=== PATIENT | female | born 1945 | race Two or more races ===

== ENCOUNTER 2020-11-03 12:06 | Emergency (ER) | payer MEDICARE, MEDICAID ==
[~2020-11-03] VITALS: Ht 154.9 cm; Wt 96.2 kg
[2020-11-03 13:21] LABS: Basophils # (auto) 0.1 10 ^3/uL (0-0.2); Basophils % (auto) 0.5 % (0.0-2.0); Eosinophils # (auto) 0.3 10 ^3/uL (0-0.8); Eosinophils % (auto) 2.6 % (0.0-7.0); Hematocrit 38.5 % (36.0-46.0); Hemoglobin 13.2 g/dL (12.2-16.2); Lymphocytes % (auto) 10.3 % (10.0-50.0); Mean Corpuscular Hemoglobin 29.5 pg (28.0-32.0); Mean Corpuscular Hgb Conc. 34.3 g/dL (32.0-36.0); Mean Corpuscular Volume 86.2 fL (80.0-100.0); Monocytes # (auto) 0.7 10 ^3/uL (0-1.3); Monocytes % (auto) 7.3 % (0.0-12.0); Neutrophils # (auto) 7.7 10 ^3/uL (1.6-8.6); Neutrophils % (auto) 79.3 % (37.0-80.0); Platelet Count (auto) 324 10^3/uL (140-450); Red Blood Cells 4.47 10^6/uL (4.0-5.20); Red Cell Distribution Width 14.5 % (11.8-14.3); White Blood Cell 9.7 10^3/uL (4.4-10.8)
[2020-11-03 13:38] LABS: Alanine Aminotransferase 13 U/L (13-56); Albumin 3.2 g/dL (3.4-5.0); Anion Gap 12 (5-15); BUN/Creatinine Ratio 22.9; Blood Urea Nitrogen 30 mg/dL (7-18); Calcium 8.5 mg/dL (8.5-10.1); Carbon Dioxide 21 mmol/L (21-32); Chloride 102 mmol/L (98-107); GFR African American 51 mL/min; GFR Non-African American 42 mL/min; Glucose 123 mg/dL (74-106); Potassium 4.6 mmol/L (3.5-5.1); Sodium 135 mmol/L (136-145)
[2020-11-03 13:42] LABS: Alkaline Phosphatase 46 U/L (45-117); Aspartate Aminotransferase 11 U/L (15-37); Bilirubin, Total 0.6 mg/dL (0.2-1.0); Total Protein 6.8 g/dL (6.4-8.2)
[2020-11-03 20:38] LABS: Urine Bacteria NONE SEEN /hpf (None Seen); Urine Blood 3+ /uL (Negative); Urine Hyaline Cast MOD /lpf (0 - 2); Urine Mucus FEW (None Seen); Urine Specific Gravity 1.015 (1.001-1.035); Urine WBC 61 /hpf (0 - 5)
[2020-11-03 21:00] VITALS: BP 117/51
[2020-11-03] MEDS ORDERED: cefTRIAXone 1GM/50ML D5W 50 ML IV ONE (21:00)
[2020-11-03] MEDS ORDERED: traMADol HCL 50 MG TAB PO ONE (21:15)
== END 2020-11-03 22:10 | disposition home or self-care (01) ==
LOC: ER 12:06
DX: N20.0 Calculus of kidney (principal); N30.00 Acute cystitis without hematuria; E11.9 Type 2 diabetes mellitus without complications; I10 Essential (primary) hypertension; Z91.040 Latex allergy status; Z88.8 Allergy status to other drugs, medicaments and biological substances
CPT/HCPCS: 36415; 72128; 72131; 80053; 81001; 83735; 83880; 84484; 85025; 93005; 96374; 99285; J0696

== ENCOUNTER 2020-11-11 14:24 | Inpatient (IN) | payer MEDICARE, MEDICAID ==
[~2020-11-11] VITALS: Ht 154.9 cm; Wt 100.5 kg
[2020-11-11 14:58] LABS: Basophils # (auto) 0.1 10 ^3/uL (0-0.2); Basophils % (auto) 0.5 % (0.0-2.0); Eosinophils # (auto) 0.2 10 ^3/uL (0-0.8); Eosinophils % (auto) 1.9 % (0.0-7.0); Hematocrit 37.5 % (36.0-46.0); Hemoglobin 12.7 g/dL (12.2-16.2); Lymphocytes # (auto) 1.1 10 ^3/uL (0.4-5.4); Lymphocytes % (auto) 11.2 % (10.0-50.0); Mean Corpuscular Hemoglobin 29.4 pg (28.0-32.0); Mean Corpuscular Volume 86.6 fL (80.0-100.0); Monocytes # (auto) 0.7 10 ^3/uL (0-1.3); Monocytes % (auto) 6.9 % (0.0-12.0); Neutrophils # (auto) 7.5 10 ^3/uL (1.6-8.6); Neutrophils % (auto) 79.5 % (37.0-80.0); Platelet Count (auto) 261 10^3/uL (140-450); Red Blood Cells 4.32 10^6/uL (4.0-5.20); Red Cell Distribution Width 14.5 % (11.8-14.3); White Blood Cell 9.4 10^3/uL (4.4-10.8)
[2020-11-11 15:08] LABS: Albumin 3.4 g/dL (3.4-5.0); Anion Gap 13 (5-15); Blood Urea Nitrogen 27 mg/dL (7-18); Carbon Dioxide 25 mmol/L (21-32); Chloride 100 mmol/L (98-107); Glucose 122 mg/dL (74-106); Potassium 3.6 mmol/L (3.5-5.1); Sodium 138 mmol/L (136-145)
[2020-11-11 15:13] LABS: Alanine Aminotransferase 13 U/L (13-56); Alkaline Phosphatase 41 U/L (45-117); Aspartate Aminotransferase 13 U/L (15-37); Bilirubin, Total 0.7 mg/dL (0.2-1.0); GFR African American 49 mL/min; GFR Non-African American 41 mL/min; Total Protein 7.1 g/dL (6.4-8.2)
[2020-11-11] MEDS ORDERED: SODIUM CHLORIDE 0.9% 1,000 ML IV ONE (17:45)
[2020-11-11] MEDS ORDERED: ONDANSETRON HCL 4 MG/2 ML VIAL IV ONE (17:45)
[2020-11-11] MEDS ORDERED: MORPHINE SULF INJ 2 MG/ML SYRINGE 1ML IV PRN (18:15)
[2020-11-11] MEDS ORDERED: NITROGLYCERIN 0.4 MG SL TAB SL PRN (18:15)
[2020-11-11] MEDS ORDERED: METOCLOPRAMIDE HCL 5MG/ml INJ 2ml VIAL IV PRN (18:15)
[2020-11-11] MEDS ORDERED: PIPERACILLIN-TAZO 4.5GM 100 ML IV ONE (18:15)
[2020-11-11] MEDS: SOD CHL 0.9%/ KCL 20MEQ 1,000 ML IV SCH (18:30)
[2020-11-11 20:34] VITALS: BP 120/66
[2020-11-11] MEDS ORDERED: FLEET ENEMA(ADULT) 135 ML PR ONE (22:00)
[2020-11-12] MEDS: SOD CHL 0.9%/ KCL 20MEQ 1,000 ML IV SCH ×2 (04:15→16:52)
[2020-11-12 04:52] VITALS: BP 109/51
[2020-11-12 09:00] VITALS: BP 115/61
[2020-11-12 13:00] VITALS: BP 132/66
[2020-11-12 17:00] VITALS: BP 129/61
[2020-11-12 22:00] VITALS: BP 122/62
[2020-11-13] MEDS: SOD CHL 0.9%/ KCL 20MEQ 1,000 ML IV SCH ×3 (00:15→20:27)
[2020-11-13 05:00] VITALS: BP 124/57
[2020-11-13 09:00] VITALS: BP 138/84
[2020-11-13 13:00] VITALS: BP 132/71
[2020-11-13 16:46] VITALS: BP 136/79
[2020-11-13 22:00] VITALS: BP 131/72
[2020-11-14 05:00] VITALS: BP 133/71
[2020-11-14] MEDS: SOD CHL 0.9%/ KCL 20MEQ 1,000 ML IV SCH ×2 (06:15→16:15)
[2020-11-14 08:59] VITALS: BP 125/62
[2020-11-14] MEDS ORDERED: ACETAMINOPHEN 325 MG TAB PO PRN (10:45)
[2020-11-14 13:03] VITALS: BP 121/65
[2020-11-14 16:52] LABS: Basophils # (auto) 0 10 ^3/uL (0-0.2); Basophils % (auto) 0.4 % (0.0-2.0); Eosinophils # (auto) 0.2 10 ^3/uL (0-0.8); Eosinophils % (auto) 2.8 % (0.0-7.0); Hematocrit 33.7 % (36.0-46.0); Hemoglobin 11.6 g/dL (12.2-16.2); Lymphocytes # (auto) 1.1 10 ^3/uL (0.4-5.4); Lymphocytes % (auto) 14.2 % (10.0-50.0); Mean Corpuscular Hemoglobin 29.6 pg (28.0-32.0); Mean Corpuscular Hgb Conc. 34.4 g/dL (32.0-36.0); Mean Corpuscular Volume 86.3 fL (80.0-100.0); Monocytes # (auto) 0.8 10 ^3/uL (0-1.3); Monocytes % (auto) 9.8 % (0.0-12.0); Neutrophils # (auto) 5.8 10 ^3/uL (1.6-8.6); Neutrophils % (auto) 72.8 % (37.0-80.0); Platelet Count (auto) 200 10^3/uL (140-450); Red Blood Cells 3.91 10^6/uL (4.0-5.20); Red Cell Distribution Width 14.5 % (11.8-14.3)
[2020-11-14 17:05] VITALS: BP 99/55
[2020-11-14 17:12] LABS: Albumin 2.8 g/dL (3.4-5.0); Calcium 8.1 mg/dL (8.5-10.1); Potassium 3.6 mmol/L (3.5-5.1)
[2020-11-14 17:15] LABS: Bilirubin, Total 0.9 mg/dL (0.2-1.0); Total Protein 6.3 g/dL (6.4-8.2)
[2020-11-14 19:22] LABS: Urine Bacteria NONE SEEN /hpf (None Seen); Urine Blood Negative /uL (Negative); Urine Mucus FEW (None Seen); Urine Specific Gravity 1.025 (1.001-1.035); Urine WBC 6 /hpf (0 - 5)
[2020-11-14 21:11] VITALS: BP 118/67
[2020-11-15] MEDS: SOD CHL 0.9%/ KCL 20MEQ 1,000 ML IV SCH ×2 (02:15→12:15)
[2020-11-15 04:27] VITALS: BP 124/79
[2020-11-15 09:00] VITALS: BP 128/70
[2020-11-15 13:00] VITALS: BP 133/73
[2020-11-15 16:31] VITALS: BP 134/75
== END 2020-11-15 17:30 | disposition home or self-care (01) | DRG 392 ==
LOC: ER 14:24 → OVERFLOW 18:09 → WEST WING 20:35
PROVIDERS: ADMIT Internal Medicine Cardiovascular Disease; ATTEND Internal Medicine Cardiovascular Disease
DX: K52.9 Noninfective gastroenteritis and colitis, unspecified (principal); R11.2 Nausea with vomiting, unspecified; E87.6 Hypokalemia; Z20.822 Contact with and (suspected) exposure to COVID-19; E11.9 Type 2 diabetes mellitus without complications; K43.9 Ventral hernia without obstruction or gangrene; K44.9 Diaphragmatic hernia without obstruction or gangrene; N20.0 Calculus of kidney; Z91.040 Latex allergy status; Z82.49 Family history of ischemic heart disease and other diseases of the circulatory system; Z88.8 Allergy status to other drugs, medicaments and biological substances; Z83.3 Family history of diabetes mellitus
CPT/HCPCS: 36415; 71045; 74176; 80053; 81001; 82962; 84484; 85025; 87081; 87426; 93005; 96365; 96375; G0378; J2405; J2543

== ENCOUNTER 2020-11-29 09:53 | Inpatient (IN) | payer MEDICARE, MEDICAID ==
[~2020-11-29] VITALS: Ht 154.9 cm; Wt 100.1 kg
[2020-11-29 10:54] LABS: Basophils # (auto) 0.1 10 ^3/uL (0-0.2); Basophils % (auto) 0.6 % (0.0-2.0); Eosinophils # (auto) 0.2 10 ^3/uL (0-0.8); Eosinophils % (auto) 1.9 % (0.0-7.0); Hematocrit 34.3 % (36.0-46.0); Hemoglobin 11.7 g/dL (12.2-16.2); Lymphocytes # (auto) 0.8 10 ^3/uL (0.4-5.4); Lymphocytes % (auto) 8.9 % (10.0-50.0); Mean Corpuscular Hemoglobin 29.7 pg (28.0-32.0); Mean Corpuscular Volume 87.1 fL (80.0-100.0); Monocytes # (auto) 0.5 10 ^3/uL (0-1.3); Monocytes % (auto) 5.7 % (0.0-12.0); Neutrophils # (auto) 7.8 10 ^3/uL (1.6-8.6); Neutrophils % (auto) 82.9 % (37.0-80.0); Red Blood Cells 3.93 10^6/uL (4.0-5.20); Red Cell Distribution Width 15.2 % (11.8-14.3); White Blood Cell 9.5 10^3/uL (4.4-10.8)
[2020-11-29 11:09] LABS: INR 1.37 (0.9-1.15); Partial Thromboplastin Time 32.6 sec (23.0-31.2)
[2020-11-29 11:12] LABS: Calcium 8.6 mg/dL (8.5-10.1); Chloride 106 mmol/L (98-107); Potassium 4.2 mmol/L (3.5-5.1); Sodium 139 mmol/L (136-145)
[2020-11-29 11:21] LABS: Alanine Aminotransferase 16 U/L (13-56); Albumin 3.3 g/dL (3.4-5.0); Alkaline Phosphatase 41 U/L (45-117); Anion Gap 10 (5-15); Aspartate Aminotransferase 12 U/L (15-37); BUN/Creatinine Ratio 23.1; Blood Urea Nitrogen 27 mg/dL (7-18); Carbon Dioxide 23 mmol/L (21-32); GFR African American 58 mL/min; GFR Non-African American 48 mL/min; Glucose 130 mg/dL (74-106); Total Protein 6.8 g/dL (6.4-8.2)
[2020-11-29] MEDS ORDERED: RIVA15TA PO (12:44)
[2020-11-29] MEDS ORDERED: AMIO200T4 PO (12:44)
[2020-11-29] MEDS ORDERED: ATO40T PO (12:46)
[2020-11-29] MEDS ORDERED: IRBE300T48 PO (12:46)
[2020-11-29] MEDS ORDERED: FURO1TAB31 PO (12:46)
[2020-11-29] MEDS ORDERED: NIFE90TA49 PO (12:48)
[2020-11-29] MEDS ORDERED: METF-370 PO (12:48)
[2020-11-29 13:39] LABS: Urine Bacteria FEW /hpf (None Seen); Urine Blood 2+ /uL (Negative); Urine Hyaline Cast FEW /lpf (0 - 2); Urine Mucus FEW (None Seen); Urine WBC 36 /hpf (0 - 5)
[2020-11-29] MEDS ORDERED: MORPHINE SULFATE INJECTION 2 MG/ML SYRG IV PRN (14:15)
[2020-11-29] MEDS ORDERED: DEXTROSE (50%) 50ML SYRG IV PRN (14:15)
[2020-11-29] MEDS ORDERED: NITROGLYCERIN 0.4 MG SL TAB SL PRN (14:15)
[2020-11-29] MEDS ORDERED: SODIUM CHLORIDE 0.9% 1,000 ML IV ONE (14:30)
[2020-11-29] MEDS: InsuLIN REG 1unit/0.01ml Soln (100units/ml) SC SCH ×2 (16:31→21:58)
[2020-11-29] MEDS: ACCU-CHEK COMFORT CURVE STRIP VI SCH ×2 (16:32→21:57)
[2020-11-29] MEDS: AMIODARONE HCL 200 MG TAB PO SCH (21:57)
[2020-11-29] MEDS: ATORVASTATIN 20 MG TAB PO SCH (21:57)
[2020-11-29] MEDS: metFORMIN HYDROCHLORIDE 500 MG TAB PO SCH (21:57)
[2020-11-29 22:00] VITALS: BP 112/61
[2020-11-30 05:00] VITALS: BP 108/54
[2020-11-30] MEDS ORDERED: KETOROLAC TROMETH 30 MG/ML 1ML VIAL IV PRN (06:15)
[2020-11-30] MEDS: InsuLIN REG 1unit/0.01ml Soln (100units/ml) SC SCH ×4 (06:41→21:40)
[2020-11-30] MEDS: ACCU-CHEK COMFORT CURVE STRIP VI SCH ×4 (06:41→21:40)
[2020-11-30 09:00] VITALS: BP 128/54
[2020-11-30] MEDS: LOSARTAN POTASSIUM 50 MG TAB PO SCH (10:00)
[2020-11-30] MEDS: HCTZ 25 MG TAB PO SCH (10:04)
[2020-11-30] MEDS: FUROSEMIDE 40 MG TAB PO SCH (10:05)
[2020-11-30] MEDS: metFORMIN HYDROCHLORIDE 500 MG TAB PO SCH ×2 (10:06→21:39)
[2020-11-30] MEDS: AMIODARONE HCL 200 MG TAB PO SCH ×2 (10:06→21:39)
[2020-11-30] MEDS: RIVAROXABAN 15 MG TAB PO SCH (10:10)
[2020-11-30 13:00] VITALS: BP 106/55
[2020-11-30] MEDS: SODIUM CHLORIDE 0.9% 1,000 ML IV SCH (16:15)
[2020-11-30 17:00] VITALS: BP 125/60
[2020-11-30 21:30] VITALS: BP 124/51
[2020-11-30] MEDS: ATORVASTATIN 20 MG TAB PO SCH (21:39)
[2020-12-01] MEDS: SODIUM CHLORIDE 0.9% 1,000 ML IV SCH ×2 (05:50→06:55)
[2020-12-01 05:59] VITALS: BP 145/72
[2020-12-01] MEDS: InsuLIN REG 1unit/0.01ml Soln (100units/ml) SC SCH ×3 (06:55→22:00)
[2020-12-01] MEDS: ACCU-CHEK COMFORT CURVE STRIP VI SCH ×3 (06:55→23:59)
[2020-12-01 09:00] VITALS: BP 119/61
[2020-12-01] MEDS: HCTZ 25 MG TAB PO SCH (09:25)
[2020-12-01] MEDS: metFORMIN HYDROCHLORIDE 500 MG TAB PO SCH ×2 (09:26→23:58)
[2020-12-01] MEDS: AMIODARONE HCL 200 MG TAB PO SCH (09:27)
[2020-12-01] MEDS: RIVAROXABAN 15 MG TAB PO SCH (09:27)
[2020-12-01] MEDS: FUROSEMIDE 40 MG TAB PO SCH (09:28)
[2020-12-01] MEDS: LOSARTAN POTASSIUM 50 MG TAB PO SCH (09:29)
[2020-12-01 13:00] VITALS: BP 122/59
[2020-12-01 17:00] VITALS: BP 100/50
[2020-12-01] MEDS ORDERED: metFORMIN HYDROCHLORIDE 500 MG TAB PO SCH (17:30)
[2020-12-01] MEDS ORDERED: LOSARTAN POTASSIUM 50 MG TAB PO SCH (17:30)
[2020-12-01] MEDS ORDERED: DEXTROSE (50%) 50ML SYRG IV PRN (17:30)
[2020-12-01 22:00] VITALS: BP 123/67
[2020-12-01] MEDS: ATORVASTATIN 20 MG TAB PO SCH (23:58)
[2020-12-02 05:00] VITALS: BP 146/70
[2020-12-02] MEDS: SODIUM CHLORIDE 0.9% 1,000 ML IV SCH (08:15)
[2020-12-02 08:34] VITALS: BP 137/62
[2020-12-02] MEDS: FUROSEMIDE 40 MG TAB PO SCH (09:30)
[2020-12-02] MEDS: metFORMIN HYDROCHLORIDE 500 MG TAB PO SCH (09:30)
[2020-12-02] MEDS: HCTZ 25 MG TAB PO SCH (09:31)
[2020-12-02] MEDS ORDERED: LOSARTAN POTASSIUM 50 MG TAB PO SCH (10:00)
[2020-12-02] MEDS ORDERED: AMIODARONE HCL 200 MG TAB PO SCH (10:00)
[2020-12-02] MEDS ORDERED: RIVAROXABAN 10 MG TAB PO SCH (10:00)
[2020-12-02] MEDS: InsuLIN REG 1unit/0.01ml Soln (100units/ml) SC SCH (10:00)
[2020-12-02] MEDS: ACCU-CHEK COMFORT CURVE STRIP VI SCH (10:00)
[2020-12-02 12:30] VITALS: BP 145/93
[2020-12-02 16:14] VITALS: BP 145/93
[2020-12-02 17:00] VITALS: BP 135/63
== END 2020-12-02 18:00 | disposition home or self-care (01) | DRG 309 ==
LOC: EDUNIT# 09:53 → EDBD 09:53 → ER 09:53 → TELE 14:12 → TELE-CENTR 18:34 → CENTRAL 12-01 17:41 → TELE-CENTR 12-01 19:52
PROVIDERS: ADMIT Internal Medicine Cardiovascular Disease; ATTEND Internal Medicine Cardiovascular Disease
DX: R00.1 Bradycardia, unspecified (principal); D68.59 Other primary thrombophilia; I95.9 Hypotension, unspecified; D64.9 Anemia, unspecified; E11.40 Type 2 diabetes mellitus with diabetic neuropathy, unspecified; I48.91 Unspecified atrial fibrillation; Z20.822 Contact with and (suspected) exposure to COVID-19; E11.21 Type 2 diabetes mellitus with diabetic nephropathy; T46.5X5A Adverse effect of other antihypertensive drugs, initial encounter; I11.0 Hypertensive heart disease with heart failure; I50.9 Heart failure, unspecified; Z82.49 Family history of ischemic heart disease and other diseases of the circulatory system; Z83.3 Family history of diabetes mellitus; Z88.8 Allergy status to other drugs, medicaments and biological substances; Z91.040 Latex allergy status; Z79.84 Long term (current) use of oral hypoglycemic drugs
CPT/HCPCS: 36415; 70450; 71045; 80053; 81001; 82962; 83880; 84484; 85025; 85610; 85730; 87081; 87426; 96360; 96361; 97163; G0378; J1885

== ENCOUNTER → 2020-12-29 | Outpatient (CLI) | payer MEDICARE, MEDICAID ==
[~2020-12-29] VITALS: Ht 152.4 cm; Wt 97.1 kg
[~2020-12-29] MED LIST: ADENOSINE 82 MG in GIVE UN-DILUTED 0 ML IV ONE; ADENOSINE 90 MG/30 ML INJ IV ONE; AMIO200T4 PO; ATO40T PO; FURO1TAB31 PO; IRBE300T48 PO; METF-370 PO; NIFE90TA49 PO; RIVA15TA PO
== END | disposition home or self-care (01) ==
LOC: Rad HDHVI 12:43
PROVIDERS: ATTEND Internal Medicine Cardiovascular Disease
DX: I10 Essential (primary) hypertension (principal); E11.9 Type 2 diabetes mellitus without complications; E78.5 Hyperlipidemia, unspecified; Z82.49 Family history of ischemic heart disease and other diseases of the circulatory system
CPT/HCPCS: 78452; 93017; 96374; A9500; J0153

== ENCOUNTER → 2020-12-31 | Outpatient (CLI) | payer MEDICARE, MEDICAID ==
[~2020-12-31] MED LIST changes: -ADENOSINE 82 MG in GIVE UN-DILUTED 0 ML IV ONE; -ADENOSINE 90 MG/30 ML INJ IV ONE
== END | disposition home or self-care (01) ==
LOC: Rad HDHVI 13:53
PROVIDERS: ATTEND Internal Medicine Cardiovascular Disease
DX: I10 Essential (primary) hypertension (principal); E78.5 Hyperlipidemia, unspecified
CPT/HCPCS: 93880

== ENCOUNTER → 2022-01-25 | Outpatient (CLI) | payer MEDICARE, MEDICAID | END | disposition home or self-care (01) | LOC: Rad HDHVI 14:06 | PROVIDERS: ATTEND Internal Medicine Cardiovascular Disease | DX: I08.1 Rheumatic disorders of both mitral and tricuspid valves (principal); R00.2 Palpitations; I10 Essential (primary) hypertension | CPT/HCPCS: 93306 ==

== ENCOUNTER → 2022-01-30 | Outpatient (CLI) | payer MEDICARE, MEDICAID ==
[~2022-01-30] VITALS: Ht 152.4 cm; Wt 95.3 kg
[~2022-01-30] MED LIST changes: +ADENOSINE 80 MG in GIVE UN-DILUTED 0 ML IV ONE; +ADENOSINE 90 MG/30 ML INJ IV ONE
== END | disposition home or self-care (01) ==
LOC: Rad HDHVI 09:29
PROVIDERS: ATTEND Internal Medicine Cardiovascular Disease
DX: I49.5 Sick sinus syndrome (principal); E78.00 Pure hypercholesterolemia, unspecified; E78.5 Hyperlipidemia, unspecified; I10 Essential (primary) hypertension; E11.9 Type 2 diabetes mellitus without complications; I48.91 Unspecified atrial fibrillation; Z82.49 Family history of ischemic heart disease and other diseases of the circulatory system
CPT/HCPCS: 78452; 93005; 96374; 96375; A9500; J0153

== ENCOUNTER → 2022-02-15 | Outpatient (CLI) | payer MEDICARE, MEDICAID ==
[~2022-02-15] MED LIST changes: -ADENOSINE 80 MG in GIVE UN-DILUTED 0 ML IV ONE; -ADENOSINE 90 MG/30 ML INJ IV ONE
== END | disposition home or self-care (01) ==
LOC: Rad HDHVI 13:12
PROVIDERS: ATTEND Internal Medicine Cardiovascular Disease
DX: I73.9 Peripheral vascular disease, unspecified (principal)
CPT/HCPCS: 93925

== ENCOUNTER → 2022-03-21 | Outpatient (CLI) | payer MEDICARE, MEDICAID ==
[~2022-03-21] MED LIST changes: +ASCO500T11 GT; +CHOL20007 OR; +LEVO50TA7 PO; +POTA10TA51 PO; +RIVA20TA PO; +SACU1TAB PO; +ZINC50TA27 PO
[2022-03-21 08:24] VITALS: BP 162/69
[2022-03-21 08:36] VITALS: BP 134/62
[2022-03-21 12:39] LABS: BUN/Creatinine Ratio 22.1; Calcium 9.1 mg/dL (8.5-10.1); Potassium 3.8 mmol/L (3.5-5.1)
[2022-03-21 13:04] LABS: Basophils # (auto) 0 10 ^3/uL (0-0.2); Basophils % (auto) 0.5 % (0.0-2.0); Eosinophils # (auto) 0.2 10 ^3/uL (0-0.8); Hematocrit 40.7 % (36.0-46.0); Lymphocytes # (auto) 0.9 10 ^3/uL (0.4-5.4); Lymphocytes % (auto) 17.7 % (10.0-50.0); Mean Corpuscular Hemoglobin 28.1 pg (28.0-32.0); Mean Corpuscular Hgb Conc. 31.9 g/dL (32.0-36.0); Mean Corpuscular Volume 87.9 fL (80.0-100.0); Monocytes # (auto) 0.4 10 ^3/uL (0-1.3); Monocytes % (auto) 8.2 % (0.0-12.0); Neutrophils # (auto) 3.4 10 ^3/uL (1.6-8.6); Neutrophils % (auto) 69.6 % (37.0-80.0); Nucleated Red Blood Cells % 0.1 %; Red Blood Cells 4.63 10^6/uL (4.0-5.20); Red Cell Distribution Width 14.7 % (11.8-14.3); White Blood Cell 4.9 10^3/uL (4.4-10.8)
[2022-03-21 13:17] LABS: INR 0.91 (0.9-1.15); Partial Thromboplastin Time 26.2 sec (24.6-33.4)
== END | disposition home or self-care (01) ==
LOC: Rad HDHVI 08:10
PROVIDERS: ATTEND Internal Medicine Cardiovascular Disease
DX: M47.814 Spondylosis without myelopathy or radiculopathy, thoracic region (principal); I70.0 Atherosclerosis of aorta; R79.1 Abnormal coagulation profile; I50.30 Unspecified diastolic (congestive) heart failure; I48.91 Unspecified atrial fibrillation; Z01.818 Encounter for other preprocedural examination
CPT/HCPCS: 36415; 71046; 80048; 85025; 85610; 85730; 93005; G0463

== ENCOUNTER → 2022-04-03 | Outpatient (CLI) | payer MEDICARE, MEDICAID ==
[~2022-04-03] VITALS: Ht 144.8 cm; Wt 98.9 kg
[~2022-04-03] MED LIST changes: -NIFE90TA49 PO; -RIVA15TA PO
[2022-04-03 11:03] LABS: Basophils # (auto) 0 10 ^3/uL (0-0.2); Basophils % (auto) 0.9 % (0.0-2.0); Eosinophils # (auto) 0.2 10 ^3/uL (0-0.8); Eosinophils % (auto) 3.2 % (0.0-7.0); Hematocrit 38.7 % (36.0-46.0); Hemoglobin 12.6 g/dL (12.2-16.2); Lymphocytes % (auto) 19.2 % (10.0-50.0); Mean Corpuscular Hemoglobin 28.6 pg (28.0-32.0); Mean Corpuscular Hgb Conc. 32.7 g/dL (32.0-36.0); Mean Corpuscular Volume 87.5 fL (80.0-100.0); Monocytes # (auto) 0.5 10 ^3/uL (0-1.3); Monocytes % (auto) 8.7 % (0.0-12.0); Neutrophils # (auto) 3.7 10 ^3/uL (1.6-8.6); Red Blood Cells 4.42 10^6/uL (4.0-5.20); Red Cell Distribution Width 14.5 % (11.8-14.3); White Blood Cell 5.4 10^3/uL (4.4-10.8)
[2022-04-03 11:08] LABS: INR 0.96 (0.9-1.15); Partial Thromboplastin Time 27.3 sec (24.6-33.4)
[2022-04-03 11:33] LABS: BUN/Creatinine Ratio 21.8; Calcium 9.1 mg/dL (8.5-10.1)
== END | disposition home or self-care (01) ==
LOC: LAB 10:03
PROVIDERS: ATTEND Internal Medicine Cardiovascular Disease
DX: Z01.812 Encounter for preprocedural laboratory examination (principal); I49.5 Sick sinus syndrome; R79.1 Abnormal coagulation profile
CPT/HCPCS: 36415; 80048; 85025; 85610; 85730

== ENCOUNTER 2022-04-06 06:40 | Day surgery (SDC) | payer MEDICARE, MEDICAID ==
[~2022-04-06] VITALS: Ht 144.8 cm; Wt 98.9 kg
[2022-04-06] VITALS (11 sets, daily range): BP systolic 112–138; BP diastolic 65–78
[~2022-04-06 06:40] MED LIST changes: -ZINC50TA27 PO
[2022-04-06] MEDS ORDERED: VANCOMYCIN 1GM/250ML 250 ML IV ONE ×2 (08:15→08:34)
[2022-04-06] MEDS ORDERED: fentaNYL CITRATE 100 MCG/2 ML VL ONE (08:33)
[2022-04-06] MEDS ORDERED: VANCOMYCIN HCL 1000 MG VL ONE (08:33)
[2022-04-06] MEDS ORDERED: MIDAZOLAM HCL 2MG/2ML 2ml VIAL (1mg/ml) ONE ×2 (08:33→08:36)
[2022-04-06] MEDS ORDERED: LIDOCAINE 2%HCL (LOCAL ANESTH.) INJ 20ML MDV ONE (09:07)
== END 2022-04-06 13:00 | disposition home or self-care (01) ==
LOC: CATH 06:40
PROVIDERS: ATTEND Internal Medicine Cardiovascular Disease
DX: I49.5 Sick sinus syndrome (principal); I10 Essential (primary) hypertension; E78.5 Hyperlipidemia, unspecified; E11.9 Type 2 diabetes mellitus without complications; I48.0 Paroxysmal atrial fibrillation; E66.01 Morbid (severe) obesity due to excess calories; Z88.8 Allergy status to other drugs, medicaments and biological substances; Z91.040 Latex allergy status; Z79.899 Other long term (current) drug therapy; Z79.84 Long term (current) use of oral hypoglycemic drugs; Z79.01 Long term (current) use of anticoagulants; Z20.822 Contact with and (suspected) exposure to COVID-19
CPT/HCPCS: 33208; 71045; C1785; C1892; C1898; J2250; J3010; J3370; J7030; U0003; 93005; 99152

== ENCOUNTER → 2022-04-07 | Outpatient (CLI) | payer MEDICARE, MEDICAID | END | disposition home or self-care (01) | LOC: Rad HDHVI 10:01 | PROVIDERS: ATTEND Internal Medicine Cardiovascular Disease | DX: J98.11 Atelectasis (principal); M47.814 Spondylosis without myelopathy or radiculopathy, thoracic region | CPT/HCPCS: 71046 ==

== ENCOUNTER → 2022-04-14 | Outpatient (CLI) | payer MEDICARE, MEDICAID | END | disposition home or self-care (01) | LOC: Rad HDHVI 10:43 | PROVIDERS: ATTEND Internal Medicine Cardiovascular Disease | DX: I51.7 Cardiomegaly (principal); R06.02 Shortness of breath; R52 Pain, unspecified | CPT/HCPCS: 71046 ==

== ENCOUNTER → 2022-05-30 | Outpatient (CLI) | payer MEDICARE, MEDICAID ==
[~2022-05-30] MED LIST changes: +IOHEXOL 350 MG/ML 100ML IJ ONE; +READI-CAT 2 (BARIUM SULF)(VANILLA SMOOTHIE) 450ML ONE
[2022-05-30 15:03] VITALS: BP 108/53
[2022-05-30 17:46] VITALS: BP 145/63
== END | disposition home or self-care (01) ==
LOC: Rad HDHVI 14:51
PROVIDERS: ATTEND Internal Medicine Cardiovascular Disease
DX: R94.4 Abnormal results of kidney function studies (principal)
CPT/HCPCS: 36415; 74177; 82565; 84520; G0463

== ENCOUNTER → 2022-10-30 | Outpatient (CLI) | payer MEDICARE, MEDICAID ==
[~2022-10-30] MED LIST changes: -IOHEXOL 350 MG/ML 100ML IJ ONE; -READI-CAT 2 (BARIUM SULF)(VANILLA SMOOTHIE) 450ML ONE
== END | disposition home or self-care (01) ==
LOC: Rad HDHVI 10:58
PROVIDERS: ATTEND Internal Medicine Cardiovascular Disease
DX: I08.0 Rheumatic disorders of both mitral and aortic valves (principal); R06.02 Shortness of breath; E78.5 Hyperlipidemia, unspecified
CPT/HCPCS: 93306

== ENCOUNTER → 2022-11-09 | Outpatient (CLI) | payer MEDICARE, MEDICAID ==
[~2022-11-09] VITALS: Ht 144.8 cm; Wt 102.1 kg
[~2022-11-09] MED LIST changes: +AMIO200T13 PO; -AMIO200T4 PO
== END | disposition home or self-care (01) ==
LOC: Rad HDHVI 09:03
PROVIDERS: ATTEND Internal Medicine Cardiovascular Disease
DX: I12.9 Hypertensive chronic kidney disease with stage 1 through stage 4 chronic kidney disease, or unspecified chronic kidney disease (principal); E11.22 Type 2 diabetes mellitus with diabetic chronic kidney disease; N18.31 Chronic kidney disease, stage 3a; E78.00 Pure hypercholesterolemia, unspecified; I49.5 Sick sinus syndrome; Z95.0 Presence of cardiac pacemaker
CPT/HCPCS: 78472; 96374; 96375; A9505

== ENCOUNTER 2023-02-20 18:57 | Emergency (ER) | payer MEDICARE, MEDICAID ==
[~2023-02-20] VITALS: Ht 152.4 cm; Wt 99.0 kg
[2023-02-20 19:15] VITALS: BP 108/86; RESP 18; O2SAT 97
[2023-02-20 19:49] VITALS: PULSE 92
[2023-02-20 20:21] LABS: Basophils # (auto) 0 10 ^3/uL (0-0.2); Basophils % (auto) 0.4 % (0.0-2.0); Eosinophils # (auto) 0.1 10 ^3/uL (0-0.8); Eosinophils % (auto) 0.5 % (0.0-7.0); Hematocrit 37.9 % (36.0-46.0); Lymphocytes # (auto) 1.1 10 ^3/uL (0.4-5.4); Lymphocytes % (auto) 10.8 % (10.0-50.0); Mean Corpuscular Hgb Conc. 31.7 g/dL (32.0-36.0); Mean Corpuscular Volume 85.3 fL (80.0-100.0); Monocytes # (auto) 0.8 10 ^3/uL (0-1.3); Neutrophils # (auto) 8.3 10 ^3/uL (1.6-8.6); Neutrophils % (auto) 80.3 % (37.0-80.0); Red Blood Cells 4.45 10^6/uL (4.0-5.20); Red Cell Distribution Width 16.3 % (11.8-14.3); White Blood Cell 10.3 10^3/uL (4.4-10.8)
[2023-02-20 20:39] LABS: Alanine Aminotransferase 15 U/L (7-40); Albumin 4.3 g/dL (3.2-4.8); Alkaline Phosphatase 48 U/L (46-116); Anion Gap 10.3 (5-15); Aspartate Aminotransferase 17 U/L (13-40); BUN/Creatinine Ratio 21.2 (10.0-20.0); Bilirubin, Total 0.6 mg/dL (0.2-1.0); Blood Urea Nitrogen 35 mg/dL (9-23); Calcium 9.3 mg/dL (8.7-10.4); Carbon Dioxide 24.7 mmol/L (20-30); Chloride 103 mmol/L (98-107); Glucose 185 mg/dL (74-106); Magnesium 1.7 mg/dL (1.6-2.6); Potassium 4.3 mmol/L (3.5-5.1); Sodium 138 mmol/L (136-145); Total Protein 6.4 g/dL (5.7-8.2)
[2023-02-20 20:40] LABS: Lactic Acid w/Reflex 4.2 mmol/L (0.4-2.0)
== END 2023-02-21 00:08 | disposition left against medical advice (07) ==
LOC: ER 18:57
DX: S80.01XA Contusion of right knee, initial encounter (principal); I11.0 Hypertensive heart disease with heart failure; I50.9 Heart failure, unspecified; R74.02 Elevation of levels of lactic acid dehydrogenase [LDH]; E11.9 Type 2 diabetes mellitus without complications; Z98.890 Other specified postprocedural states; Z91.040 Latex allergy status; Z88.8 Allergy status to other drugs, medicaments and biological substances; Z79.1 Long term (current) use of non-steroidal anti-inflammatories (NSAID); Z79.899 Other long term (current) drug therapy; W01.0XXA Fall on same level from slipping, tripping and stumbling without subsequent striking against object, initial encounter; Y93.89 Activity, other specified; Y92.89 Other specified places as the place of occurrence of the external cause; Y99.8 Other external cause status
CPT/HCPCS: 36415; 71045; 73562; 80053; 83605; 83735; 83880; 84484; 85025; 93005

== ENCOUNTER → 2023-05-28 | Outpatient (CLI) | payer MEDICARE, MEDICAID | END | disposition home or self-care (01) | LOC: Rad HDHVI 14:48 | PROVIDERS: ATTEND Internal Medicine Cardiovascular Disease | DX: I08.0 Rheumatic disorders of both mitral and aortic valves (principal); E78.5 Hyperlipidemia, unspecified | CPT/HCPCS: 93306 ==

== ENCOUNTER → 2023-05-30 | Outpatient (CLI) | payer MEDICARE, MEDICAID | END | disposition home or self-care (01) | LOC: Rad HDHVI 09:55 | PROVIDERS: ATTEND Internal Medicine Cardiovascular Disease | DX: R60.0 Localized edema (principal) | CPT/HCPCS: 93970 ==

== ENCOUNTER → 2023-08-28 | Outpatient (CLI) | payer MEDICARE, MEDICAID ==
[~2023-08-28] MED LIST changes: -ATO40T PO; +ATOR-507 PO; +POTA-36 PO; -POTA10TA51 PO
[2023-08-28 10:28] LABS: Basophils # (auto) 0 10 ^3/uL (0-0.2); Basophils % (auto) 0.6 % (0.0-2.0); Eosinophils # (auto) 0.1 10 ^3/uL (0-0.8); Eosinophils % (auto) 1.9 % (0.0-7.0); Hematocrit 34.5 % (36.0-46.0); Hemoglobin 11.4 g/dL (12.2-16.2); Lymphocytes # (auto) 0.9 10 ^3/uL (0.4-5.4); Lymphocytes % (auto) 12.6 % (10.0-50.0); Mean Corpuscular Hemoglobin 28.7 pg (28.0-32.0); Mean Corpuscular Hgb Conc. 33.1 g/dL (32.0-36.0); Mean Corpuscular Volume 86.9 fL (80.0-100.0); Monocytes # (auto) 0.6 10 ^3/uL (0-1.3); Monocytes % (auto) 8.4 % (0.0-12.0); Neutrophils # (auto) 5.4 10 ^3/uL (1.6-8.6); Neutrophils % (auto) 76.5 % (37.0-80.0); Red Blood Cells 3.97 10^6/uL (4.0-5.20); Red Cell Distribution Width 15.5 % (11.8-14.3)
[2023-08-28 10:33] LABS: Urine Bacteria FEW /hpf (None Seen); Urine Blood 2+ /uL (Negative); Urine Clarity Clear (Clear); Urine Color Colorless (Yellow); Urine Mucus FEW (None Seen); Urine Protein, UAD 1+ (Negative); Urine Specific Gravity 1.012 (1.001-1.035); Urine Urobilinogen Normal (Negative); Urine WBC 8 /hpf (0 - 5); Urine pH 6.5 (5.0-8.0)
[2023-08-28 10:50] LABS: Creatinine, Urine 48.31 mg/dL (30.0-125.0)
[2023-08-28 10:53] LABS: Alanine Aminotransferase 114 U/L (7-40); Albumin 4.2 g/dL (3.2-4.8); Alkaline Phosphatase 69 U/L (46-116); Anion Gap 7 (5-15); Aspartate Aminotransferase 112 U/L (13-40); BUN/Creatinine Ratio 18.9 (10.0-20.0); Blood Urea Nitrogen 23 mg/dL (9-23); Calcium 9.5 mg/dL (8.5-10.1); Carbon Dioxide 29 mmol/L (20-30); Chloride 102 mmol/L (98-107); Cholesterol 123 mg/dL (< 200); Glucose 152 mg/dL (74-106); HDL Cholesterol 60 mg/dL (40-59); LDL Cholesterol 43 mg/dL (< 100); Potassium 3.9 mmol/L (3.5-5.1); Sodium 138 mmol/L (136-145); Triglycerides 92 mg/dL (< 150)
[2023-08-28 10:54] LABS: Bilirubin, Total 0.6 mg/dL (0.2-1.0); Total Protein 6.2 g/dL (5.7-8.2)
== END | disposition home or self-care (01) ==
LOC: LAB 10:05
PROVIDERS: ATTEND Internal Medicine
DX: I12.9 Hypertensive chronic kidney disease with stage 1 through stage 4 chronic kidney disease, or unspecified chronic kidney disease (principal); E11.22 Type 2 diabetes mellitus with diabetic chronic kidney disease; N18.9 Chronic kidney disease, unspecified; E11.69 Type 2 diabetes mellitus with other specified complication; E55.9 Vitamin D deficiency, unspecified; Z79.899 Other long term (current) drug therapy
CPT/HCPCS: 36415; 80053; 80061; 81001; 82043; 82306; 82570; 83036; 84439; 84443; 85025; 87086

== ENCOUNTER → 2023-10-22 | Outpatient (CLI) | payer MEDICARE, MEDICAID ==
[2023-10-22 15:51] LABS: Chloride 99 mmol/L (98-107); Potassium 3.4 mmol/L (3.5-5.1); Sodium 140 mmol/L (136-145)
[2023-10-22 15:52] LABS: Anion Gap 11 (5-15); Calcium 9.9 mg/dL (8.5-10.1); Carbon Dioxide 30 mmol/L (20-30)
[2023-10-22 15:57] LABS: BUN/Creatinine Ratio 26.3 (10.0-20.0); Blood Urea Nitrogen 40 mg/dL (9-23); Glucose 111 mg/dL (74-106)
== END | disposition home or self-care (01) ==
LOC: LAB 15:17
PROVIDERS: ATTEND Internal Medicine
DX: N17.9 Acute kidney failure, unspecified (principal)
CPT/HCPCS: 36415; 80048

== ENCOUNTER → 2023-12-05 | Outpatient (CLI) | payer MEDICARE, MEDICAID ==
[~2023-12-05] MED LIST changes: +SODIUM CHLORIDE 0.9% 500 ML IV ONE
[2023-12-05 14:41] VITALS: BP 110/67; PULSE 60; RESP 18; O2SAT 98
[2023-12-05 16:50] VITALS: BP 116/62; PULSE 59; RESP 18; O2SAT 98
== END | disposition home or self-care (01) ==
LOC: CHF HDHVI 14:39
PROVIDERS: ATTEND Internal Medicine Cardiovascular Disease
DX: E86.0 Dehydration (principal)
CPT/HCPCS: 96360; 96361; G0463; J7040

== ENCOUNTER → 2023-12-17 | Outpatient (CLI) | payer MEDICARE, MEDICAID ==
[~2023-12-17] MED LIST changes: -SODIUM CHLORIDE 0.9% 500 ML IV ONE
[2023-12-17 14:53] VITALS: BP 143/87; PULSE 85; RESP 18; O2SAT 96
[2023-12-17] MEDS: POTASSIUM CHL 20 Meq TABLET PO ONE (14:53)
[2023-12-17] MEDS: BUMETANIDE 2.5mg/10ml (0.25 mg/ml) INJ IV ONE (14:53)
[2023-12-17 15:30] VITALS: BP 162/83; PULSE 86; RESP 18; O2SAT 98
[2023-12-17] MEDS: POTASSIUM CHL 10 Meq TABLET PO ONE (15:30)
[2023-12-17] MEDS: BUMETANIDE INJECTION 10 ML ONE (15:30)
== END | disposition home or self-care (01) ==
LOC: CHF HDHVI 14:55
PROVIDERS: ATTEND Internal Medicine Cardiovascular Disease
DX: R60.9 Edema, unspecified (principal); E86.0 Dehydration
CPT/HCPCS: 96374; G0463

== ENCOUNTER → 2023-12-31 | Outpatient (CLI) | payer MEDICARE, MEDICAID ==
[2023-12-31 16:05] VITALS: BP 126/76; PULSE 98; RESP 18; O2SAT 98
[2023-12-31 16:49] VITALS: BP 156/84; PULSE 89; RESP 18; O2SAT 98
[2023-12-31] MEDS: POTASSIUM CHL 20 Meq TABLET PO ONE (16:52)
[2023-12-31] MEDS: BUMETANIDE 2.5mg/10ml (0.25 mg/ml) INJ IV ONE (16:52)
[2023-12-31] MEDS: BUMETANIDE INJECTION 10 ML ONE (16:52)
[2023-12-31] MEDS: POTASSIUM CHL 10 Meq TABLET PO ONE (16:53)
[2023-12-31] MEDS: ACETAMINOPHEN 500 MG TAB PO ONE ×2 (16:53)
== END | disposition home or self-care (01) ==
LOC: Rad HDHVI 16:27
PROVIDERS: ATTEND Internal Medicine Cardiovascular Disease
DX: R60.9 Edema, unspecified (principal); E86.0 Dehydration
CPT/HCPCS: 96374; G0463

== ENCOUNTER → 2024-01-07 | Outpatient (CLI) | payer MEDICARE, MEDICAID ==
[2024-01-07 15:00] VITALS: BP 161/90; PULSE 100; RESP 20; O2SAT 96
[2024-01-07] MEDS: BUMETANIDE 2.5mg/10ml (0.25 mg/ml) INJ IV ONE (15:00)
[2024-01-07] MEDS: POTASSIUM CHL 20 Meq TABLET PO ONE (15:00)
[2024-01-07] MEDS: POTASSIUM CHL 10 Meq TABLET PO ONE (15:11)
[2024-01-07] MEDS: BUMETANIDE INJECTION 10 ML ONE (15:11)
[2024-01-07 15:30] VITALS: BP 142/72; PULSE 108; RESP 20; O2SAT 96
== END | disposition home or self-care (01) ==
LOC: CHF HDHVI 14:26
PROVIDERS: ATTEND Internal Medicine Cardiovascular Disease
DX: I12.9 Hypertensive chronic kidney disease with stage 1 through stage 4 chronic kidney disease, or unspecified chronic kidney disease (principal); E11.22 Type 2 diabetes mellitus with diabetic chronic kidney disease; N18.9 Chronic kidney disease, unspecified; R60.9 Edema, unspecified; E86.0 Dehydration
CPT/HCPCS: 96374

== ENCOUNTER → 2024-01-14 | Outpatient (CLI) | payer MEDICARE, MEDICAID ==
[2024-01-14 14:17] VITALS: BP 139/78; PULSE 97; RESP 18; O2SAT 97
[2024-01-14] MEDS: POTASSIUM CHL 20 Meq TABLET PO ONE (14:17)
[2024-01-14] MEDS: POTASSIUM CHL 10 Meq TABLET PO ONE (14:27)
[2024-01-14] MEDS: BUMETANIDE INJECTION 10 ML ONE (14:27)
[2024-01-14] MEDS: BUMETANIDE 2.5mg/10ml (0.25 mg/ml) INJ IV ONE (14:30)
[2024-01-14 14:50] VITALS: BP 143/87; PULSE 84; RESP 18; O2SAT 97
== END | disposition home or self-care (01) ==
LOC: CHF HDHVI 14:03
PROVIDERS: ATTEND Internal Medicine Cardiovascular Disease
DX: R60.9 Edema, unspecified (principal); I12.9 Hypertensive chronic kidney disease with stage 1 through stage 4 chronic kidney disease, or unspecified chronic kidney disease; E11.22 Type 2 diabetes mellitus with diabetic chronic kidney disease; N18.9 Chronic kidney disease, unspecified
CPT/HCPCS: 96374; G0463

== ENCOUNTER → 2024-02-06 | Outpatient (CLI) | payer MEDICARE, MEDICAID ==
[2024-02-06 15:14] LABS: Basophils # (auto) 0.1 10 ^3/uL (0-0.2); Eosinophils # (auto) 0.2 10 ^3/uL (0-0.8); Hemoglobin 10.2 g/dL (12.2-16.2); Lymphocytes # (auto) 1.2 10 ^3/uL (0.4-5.4); Neutrophils # (auto) 4.8 10 ^3/uL (1.6-8.6); Nucleated Red Blood Cells % 0.1 %; Red Cell Distribution Width 16.9 % (11.8-14.3)
[2024-02-06 15:16] LABS: Basophils % (auto) 0.9 % (0.0-2.0); Eosinophils % (auto) 3.1 % (0.0-7.0); Hematocrit 32.8 % (36.0-46.0); Lymphocytes % (auto) 17.5 % (10.0-50.0); Mean Corpuscular Hemoglobin 24.1 pg (28.0-32.0); Mean Corpuscular Hgb Conc. 31.2 g/dL (32.0-36.0); Mean Corpuscular Volume 77.1 fL (80.0-100.0); Monocytes # (auto) 0.7 10 ^3/uL (0-1.3); Monocytes % (auto) 10.4 % (0.0-12.0); Neutrophils % (auto) 68.1 % (37.0-80.0); Platelet Count (auto) 291 10^3/uL (140-450); Red Blood Cells 4.25 10^6/uL (4.0-5.20); White Blood Cell 7.1 10^3/uL (4.4-10.8)
[2024-02-06 16:13] LABS: Chloride 104 mmol/L (98-107); Potassium 3.9 mmol/L (3.5-5.1); Sodium 141 mmol/L (136-145)
[2024-02-06 16:14] LABS: Anion Gap 7 (5-15); Carbon Dioxide 30 mmol/L (20-30)
[2024-02-06 16:15] LABS: Calcium 9.7 mg/dL (8.7-10.4)
[2024-02-06 16:19] LABS: BUN/Creatinine Ratio 18.2 (10.0-20.0); Blood Urea Nitrogen 26 mg/dL (9-23); Glucose 101 mg/dL (74-106)
== END | disposition home or self-care (01) ==
LOC: LAB 14:50
PROVIDERS: ATTEND Orthopaedic Surgery
DX: I13.0 Hypertensive heart and chronic kidney disease with heart failure and stage 1 through stage 4 chronic kidney disease, or unspecified chronic kidney disease (principal); E11.22 Type 2 diabetes mellitus with diabetic chronic kidney disease; N18.31 Chronic kidney disease, stage 3a; E11.42 Type 2 diabetes mellitus with diabetic polyneuropathy; I50.42 Chronic combined systolic (congestive) and diastolic (congestive) heart failure
CPT/HCPCS: 36415; 80048; 83880; 85025

== ENCOUNTER → 2024-06-26 | Outpatient (CLI) | payer MEDICARE, MEDICAID ==
[2024-06-26 07:24] LABS: Urine Bacteria None Seen /hpf (None Seen)
[2024-06-26 07:54] LABS: Basophils # (auto) 0 10 ^3/uL (0-0.2); Eosinophils # (auto) 0.2 10 ^3/uL (0-0.8); Hemoglobin 11.5 g/dL (12.2-16.2); Monocytes # (auto) 0.7 10 ^3/uL (0-1.3)
[2024-06-26 07:56] LABS: Basophils % (auto) 0.4 % (0.0-2.0); Eosinophils % (auto) 1.9 % (0.0-7.0); Hematocrit 36.1 % (36.0-46.0); Lymphocytes % (auto) 10.8 % (10.0-50.0); Mean Corpuscular Hemoglobin 23.8 pg (28.0-32.0); Mean Corpuscular Hgb Conc. 31.8 g/dL (32.0-36.0); Mean Corpuscular Volume 74.8 fL (80.0-100.0); Monocytes % (auto) 7.9 % (0.0-12.0); Nucleated Red Blood Cells % 0.1 %; Platelet Count (auto) 339 10^3/uL (140-450); Red Blood Cells 4.82 10^6/uL (4.0-5.20); Red Cell Distribution Width 19.5 % (11.8-14.3); White Blood Cell 8.9 10^3/uL (4.4-10.8)
[2024-06-26 08:21] LABS: Urine Blood 3+ /uL (Negative); Urine Clarity Cloudy (Clear); Urine Color Pink (Yellow); Urine Hyaline Cast FEW /lpf (0 - 2); Urine Protein, UAD 1+ (Negative); Urine Specific Gravity 1.014 (1.001-1.035); Urine Squamous Epithelial Cell FEW /hpf (<5); Urine Urobilinogen Normal (Negative); Urine WBC 6 /hpf (0 - 5)
== END | disposition home or self-care (01) ==
LOC: LAB 07:15
PROVIDERS: ATTEND Internal Medicine
DX: R31.9 Hematuria, unspecified (principal)
CPT/HCPCS: 36415; 81001; 85025

== ENCOUNTER → 2024-09-03 | Outpatient (CLI) | payer MEDICARE, MEDICAID ==
[2024-09-03 13:52] LABS: Basophils # (auto) 0.1 10 ^3/uL (0-0.2); Hemoglobin 12.6 g/dL (12.2-16.2); Lymphocytes # (auto) 1.3 10 ^3/uL (0.4-5.4); Lymphocytes % (auto) 10.3 % (10.0-50.0)
[2024-09-03 13:54] LABS: Basophils % (auto) 0.7 % (0.0-2.0); Eosinophils # (auto) 0.3 10 ^3/uL (0-0.8); Eosinophils % (auto) 1.9 % (0.0-7.0); Hematocrit 38.6 % (36.0-46.0); Mean Corpuscular Hemoglobin 24.9 pg (28.0-32.0); Mean Corpuscular Hgb Conc. 32.6 g/dL (32.0-36.0); Mean Corpuscular Volume 76.4 fL (80.0-100.0); Monocytes % (auto) 7.3 % (0.0-12.0); Neutrophils # (auto) 10.4 10 ^3/uL (1.6-8.6); Neutrophils % (auto) 79.8 % (37.0-80.0); Platelet Count (auto) 378 10^3/uL (140-450); Red Blood Cells 5.06 10^6/uL (4.0-5.20); Red Cell Distribution Width 18.7 % (11.8-14.3)
[2024-09-03 15:14] LABS: Anion Gap 14 (5-15)
[2024-09-03 15:15] LABS: Calcium 10.2 mg/dL (8.7-10.4)
[2024-09-03 15:19] LABS: BUN/Creatinine Ratio 26.5 (10.0-20.0)
[2024-09-03 15:24] LABS: Blood Urea Nitrogen 54 mg/dL (9-23); Carbon Dioxide 32 mmol/L (20-31); Chloride 89 mmol/L (98-107); Glucose 199 mg/dL (74-106); Sodium 135 mmol/L (136-145)
[2024-09-03 15:26] LABS: Potassium 2.5 mmol/L (3.5-5.1)
== END | disposition home or self-care (01) ==
LOC: LAB 13:30
PROVIDERS: ATTEND Internal Medicine
DX: I13.0 Hypertensive heart and chronic kidney disease with heart failure and stage 1 through stage 4 chronic kidney disease, or unspecified chronic kidney disease (principal); E11.22 Type 2 diabetes mellitus with diabetic chronic kidney disease; N18.9 Chronic kidney disease, unspecified; I50.9 Heart failure, unspecified
CPT/HCPCS: 36415; 80048; 85025

== ENCOUNTER → 2024-09-08 | Outpatient (CLI) | payer MEDICARE, MEDICAID ==
[2024-09-08 13:53] LABS: Sodium 140 mmol/L (136-145)
[2024-09-08 13:54] LABS: Anion Gap 11 (5-15); Calcium 9.3 mg/dL (8.7-10.4)
[2024-09-08 13:55] LABS: Carbon Dioxide 32 mmol/L (20-31); Chloride 97 mmol/L (98-107); Potassium 3.4 mmol/L (3.5-5.1)
[2024-09-08 13:59] LABS: BUN/Creatinine Ratio 22.8 (10.0-20.0); Blood Urea Nitrogen 36 mg/dL (9-23); Glucose 129 mg/dL (74-106)
== END | disposition home or self-care (01) ==
LOC: LAB 13:14
PROVIDERS: ATTEND Internal Medicine
DX: E87.6 Hypokalemia (principal)
CPT/HCPCS: 36415; 80048

== ENCOUNTER → 2024-10-14 | Outpatient (CLI) | payer MEDICARE, MEDICAID | END | disposition home or self-care (01) | LOC: Rad HDHVI 12:59 | PROVIDERS: ATTEND Internal Medicine Cardiovascular Disease | DX: I34.81 Nonrheumatic mitral (valve) annulus calcification (principal); I51.7 Cardiomegaly; E78.5 Hyperlipidemia, unspecified | CPT/HCPCS: 93306 ==

== ENCOUNTER → 2024-10-15 | Outpatient (CLI) | payer MEDICARE, MEDICAID | END | disposition home or self-care (01) | LOC: Rad HDHVI 13:25 | PROVIDERS: ATTEND Internal Medicine Cardiovascular Disease | DX: E78.5 Hyperlipidemia, unspecified (principal); R53.1 Weakness; I11.0 Hypertensive heart disease with heart failure; I50.9 Heart failure, unspecified; E11.9 Type 2 diabetes mellitus without complications; Z86.73 Personal history of transient ischemic attack (TIA), and cerebral infarction without residual deficits | CPT/HCPCS: 93880 ==

== ENCOUNTER 2025-01-21 10:54 | Outpatient (CLI) | payer MEDICARE, MEDICAID ==
[2025-01-21 11:38] LABS: Hemoglobin 12.3 g/dL (12.2-16.2)
[2025-01-21 11:41] LABS: Hematocrit 37.6 % (36.0-46.0); Mean Corpuscular Hemoglobin 25.5 pg (28.0-32.0); Mean Corpuscular Volume 77.9 fL (80.0-100.0); Nucleated Red Blood Cells % 0.1 %
[2025-01-21 11:44] LABS: Urine Protein, UAD Negative (Negative)
[2025-01-21 12:15] LABS: Microalb/Creat Ratio, Urine 30.0
[2025-01-21 12:21] LABS: Albumin 4.4 g/dL (3.2-4.8); Alkaline Phosphatase 69 U/L (46-116); Anion Gap 12 (5-15); BUN/Creatinine Ratio 14.2 (10.0-20.0); Bilirubin, Total 0.8 mg/dL (0.2-1.0); Blood Urea Nitrogen 18 mg/dL (9-23); Calcium 9.7 mg/dL (8.7-10.4); Carbon Dioxide 29 mmol/L (20-31); Chloride 100 mmol/L (98-107); Cholesterol 131 mg/dL (< 200); Glucose 89 mg/dL (74-106); HDL Cholesterol 45 mg/dL (40-59); Sodium 141 mmol/L (136-145); Total Protein 6.8 g/dL (5.7-8.2); Triglycerides 131 mg/dL (< 150)
[2025-01-21 12:22] LABS: Alanine Aminotransferase < 9 U/L (7-40); Potassium 3.3 mmol/L (3.5-5.1)
== END 2025-01-21 17:00 | disposition home or self-care (01) ==
LOC: LAB 10:54
PROVIDERS: ATTEND Internal Medicine
DX: E11.22 Type 2 diabetes mellitus with diabetic chronic kidney disease (principal); N18.9 Chronic kidney disease, unspecified; E78.5 Hyperlipidemia, unspecified; Z00.01 Encounter for general adult medical examination with abnormal findings
CPT/HCPCS: 36415; 80053; 80061; 81001; 82043; 82570; 83036; 84439; 84443; 85025

== ENCOUNTER 2025-03-11 09:18 | Outpatient (CLI) | payer MEDICARE, MEDICAID ==
[2025-03-11 10:14] LABS: Chloride 99 mmol/L (98-107); Sodium 140 mmol/L (136-145)
[2025-03-11 10:15] LABS: Anion Gap 11 (5-15); Calcium 9.0 mg/dL (8.7-10.4); Carbon Dioxide 30 mmol/L (20-31)
[2025-03-11 10:20] LABS: BUN/Creatinine Ratio 13.8 (10.0-20.0); Blood Urea Nitrogen 15 mg/dL (9-23); Glucose 97 mg/dL (74-106)
[2025-03-11 10:33] LABS: Potassium 2.8 mmol/L (3.5-5.1)
[2025-03-11 10:38] LABS: Urine Protein, UAD Negative (Negative)
[2025-03-11 14:24] LABS: Microalb/Creat Ratio, Urine 40.0
== END 2025-03-11 17:00 | disposition home or self-care (01) ==
LOC: LAB 09:18
PROVIDERS: ATTEND Internal Medicine
DX: I13.0 Hypertensive heart and chronic kidney disease with heart failure and stage 1 through stage 4 chronic kidney disease, or unspecified chronic kidney disease (principal); E11.22 Type 2 diabetes mellitus with diabetic chronic kidney disease; N18.32 Chronic kidney disease, stage 3b; I50.9 Heart failure, unspecified; E87.6 Hypokalemia
CPT/HCPCS: 36415; 80048; 81001; 82043; 82570